=== PATIENT | male | born 1975 | race Caucasian/White ===

== ENCOUNTER 2022-06-15 13:52 | Emergency (ER) | payer OTHER ==
[2022-06-15 14:07] VITALS: TEMP 97.8
--- NOTE | 2022-06-15 14:22 | XR ---
EXAMINATION TYPE: XR chest 2V DATE OF EXAM: 06/15/2022 COMPARISON: NONE HISTORY: Chest pain TECHNIQUE: 2 views FINDINGS: Heart and mediastinum are normal. Lungs are clear. Diaphragm is normal. Bony thorax is inta ct. IMPRESSION: Normal chest.
--- NOTE | 2022-06-15 15:43 | ED ---
General Adult HPI - General Chief complaint: Recheck/Abnormal Lab/Rx Stated complaint: Broken rib Time Seen by Provider: 06/15/22 14:20 Source: patient Mode of arrival: ambulatory Limitations: no limitations - History of Present Illness Initial comments: 47-year-old male presents emergency room after he fell off of his skateboard last week. Patient landed on his left arm. Continues to have left chest wall pain. He denies associated shortness of breath. Has been taking Tylenol for his pain with some improvement. Denies fevers, chills or cough. No neck or back pain. Did not sustain any head trauma. 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 ROS Other: All systems not noted in ROS Statement are negative. Past Medical History Past Medical History: No Reported History History of Any Multi-Drug Resistant Organisms: None Reported Past Surgical History: No Surgical Hx Reported Past Psychological History: No Psychological Hx Reported Smoking Status: Current every day smoker Past Alcohol Use History: None Reported Past Drug Use History: None Reported General Exam Limitations: no limitations General appearance: alert, in no apparent distress Head exam: Present: atraumatic, normocephalic, normal inspection Eye exam: Present: normal appearance, PERRL, EOMI. Absent: scleral icterus, conjunctival injection, periorbital swelling ENT exam: Present: normal exam, mucous membranes moist Neck exam: Present: normal inspection. Absent: tenderness, meningismus, lymphadenopathy Respiratory exam: Present: normal lung sounds bilaterally, chest wall tenderness (left lateral chest wall. no ecchymosis. no deformity. no crepitance. positive breath sounds). Absent: respiratory distress, wheezes, rales, rhonchi, stridor Cardiovascular Exam: Present: regular rate, normal rhythm, normal heart sounds. Absent: systolic murmur, diastolic murmur, rubs, gallop, clicks GI/Abdominal exam: Present: soft, normal bowel sounds. Absent: distended, tenderness, guarding, rebound, rigid Extremities exam: Present: normal inspection, full ROM, normal capillary refill. Absent: tenderness, pedal edema, joint swelling, calf tenderness Back exam: Present: normal inspection Neurological exam: Present: alert, oriented X3, CN II-XII intact Psychiatric exam: Present: normal affect, normal mood Skin exam: Present: warm, dry, intact, normal color. Absent: rash Course Vital Signs 06/15/22 06/15/22 14:04 15:49 Temperature 97.8 F Pulse Rate 74 65 Respiratory 20 18 Rate Blood Pressure 148/88 135/85 O2 Sat by Pulse 98 99 Oximetry Medical Decision Making - Medical Decision Making Upon arrival the patient is placed into hallway 26. Thorough history and physical exam is performed. X-rays performed which demonstrates no acute rib fractures. Patient given incentive spirometer and prescriptions for Motrin 600 and an inhaler. Instructed to buy Lidoderm patches [id number]. Follow-up with his primary care doctor in 2-4 days return for any new or worsening symptoms. Patient was agreeable to plan and discharged home in stable condition Disposition Clinical Impression: Rib pain on left side, Fall Disposition: HOME SELF-CARE Condition: Stable Instructions (If sedation given, give patient instructions): Chest Wall Pain (ED) Additional Instructions: Buy the Aspercreme patches and wear as directed. Take Motrin 600 milligrams every 6 hours. Use the incentive spirometer and inhaler. Return to the emergency room for any new or worsening symptoms Prescriptions: Ibuprofen [Motrin] 600 mg PO Q6HR PRN #30 tab PRN Reason: Pain Albuterol Sulfate [Proair Hfa] 1 - 2 puff INHALATION Q4HR PRN #8.5 gm PRN Reason: difficulty in breathing Is patient prescribed a controlled substance at d/c from ED?: No Referrals: Nonstaff,Physician [Primary Care Provider] - 1-2 days Time of Disposition: 15:42
[2022-06-15 15:50] VITALS: BP 135/85; PULSE 65; RESP 18
== END 2022-06-15 15:50 | disposition home or self-care (01) ==
LOC: EC 13:52
DX: R07.81 Pleurodynia (principal); F17.200 Nicotine dependence, unspecified, uncomplicated; V00.131A Fall from skateboard, initial encounter; Y93.51 Activity, roller skating (inline) and skateboarding
CPT/HCPCS: 71046; 99283